=== PATIENT | female | born 1945 | race Caucasian/White ===

== ENCOUNTER → 2018-08-06 | Outpatient (CLI) | payer MEDICARE, OTHER ==
[~2018-08-06] MED LIST: ASPIR 8181 MG PO; ATENOLOL 50MG T50 M1 PO; CINNAMON500 MG PO; COLACE100 MG PO; LEVAQUIN 500 M500 M2 PO; MIRALAX17 GM PO; OXYCODONE HCL 55 MG PO; PHENERGAN 25 MG25 M1 PO; SYNTHROID125 MCG PO; VITAMIN D1000 UNI1 PO
== END ==
LOC: M.RAD 10:12
DX: D71 Functional disorders of polymorphonuclear neutrophils (principal); I70.0 Atherosclerosis of aorta; J18.1 Lobar pneumonia, unspecified organism

== ENCOUNTER 2019-10-15 11:00 | Inpatient (IN) | payer MEDICARE, OTHER ==
[~2019-10-15] VITALS: Ht 162.6 cm; Wt 90.7 kg
--- NOTE | ~2019-10-15 | PROC ---
[address] [address] PROCEDURE REPORT Name: SONAL ALBERT Room: [address] IN M.R.#: [id number] Admission: 10/15/19 Attend Phys: Dontae Min MD Discharge: 10/17/19 Date of : 43 Report #: [id number] THIS REPORT FOR: //name// cc: John Watt MD, David L. MD ~ THIS REPORT FOR: //name// For GI report, please see the Provation report in Perceptive 7 content. By: 0652Medical Records Staff ERASMO /YSABEL
[2019-10-15 11:36] LABS: ABSOLUTE EOSINOPHILS 0.4 thou/uL (0.0-0.7); ABSOLUTE MONOCYTES 0.7 thou/uL (0.0-1.2); ABSOLUTE NEUTROPHILS 8.5 thou/uL (1.6-8.1); BASOPHILS 0.2 %; EOSINOPHILS 3.1 %; HEMATOCRIT 43.6 % (37.0-47.0); HEMOGLOBIN 14.6 gm/dL (12.0-15.0); LYMPHOCYTES 17.3 %; MCH 29.8 pg (26.0-34.0); MCHC 33.6 g/dL (28.0-37.0); MCV 88.5 fL (80.0-100.0); MONOCYTES 5.7 %; MPV 7.7 fl. (7.2-11.1); NUCLEATED RBCS 0 /100WBC; PLATELET COUNT* 292 thou/uL (150-400); POLYS 73.7 %; RBC 4.92 mil/uL (4.20-5.00); RDW-CV 13.9 % (10.5-14.5); WBC 11.6 thou/uL (4.0-11.0)
[2019-10-15 11:57] LABS: ALBUMIN 3.7 g/dL (3.4-5.0); ALKALINE PHOSPHATASE 75 U/L (46-116); ANION GAP 9 mmol/L (7-16); BUN 11 mg/dL (7-18); CALCIUM 9.1 mg/dL (8.5-10.1); CHLORIDE 96 mmol/L (98-107); CHOLESTEROL 290 mg/dL (<200); CO2 27 mmol/L (21-32); CREATININE 0.9 mg/dL (0.6-1.3); GLUCOSE 248 mg/dL (70-99); HDL CHOLESTEROL 51 mg/dL (>40); LDL CHOLESTEROL 209 mg/dL (<100); POTASSIUM 3.5 mmol/L (3.5-5.1); SGOT 21 U/L (15-37); SGPT 41 U/L (30-65); SODIUM 132 mmol/L (136-145); TC:HDL 5.7 Ratio (Not establshd); TOTAL BILIRUBIN 0.5 mg/dL (<0.1-1.0); TOTAL PROTEIN 8.5 g/dL (6.4-8.2); TRIGLYCERIDE 154 mg/dL (<150); VLDL 31 mg/dL (<40)
[2019-10-15 12:00] LABS: SERUM ASSESSMENT Clear
[2019-10-15 16:23] VITALS: BP 179/100
[2019-10-15] MEDS ORDERED: NORVASC5 M1 PO (17:11)
[2019-10-15 20:00] VITALS: BP 149/74
[2019-10-16 05:23] LABS: ABSOLUTE EOSINOPHILS 0.1 thou/uL (0.0-0.7); ABSOLUTE LYMPHOCYTES 2.1 thou/uL (0.8-5.3); ABSOLUTE MONOCYTES 0.7 thou/uL (0.0-1.2); ABSOLUTE NEUTROPHILS 5.8 thou/uL (1.6-8.1); BASOPHILS 0.1 %; EOSINOPHILS 1.6 %; HEMATOCRIT 41.9 % (37.0-47.0); HEMOGLOBIN 14.1 gm/dL (12.0-15.0); LYMPHOCYTES 23.9 %; MCH 29.7 pg (26.0-34.0); MCHC 33.7 g/dL (28.0-37.0); MCV 88.1 fL (80.0-100.0); MONOCYTES 7.7 %; MPV 8.1 fl. (7.2-11.1); NUCLEATED RBCS 0 /100WBC; PLATELET COUNT* 254 thou/uL (150-400); POLYS 66.7 %; RBC 4.75 mil/uL (4.20-5.00); RDW-CV 14.1 % (10.5-14.5); WBC 8.6 thou/uL (4.0-11.0)
[2019-10-16 05:31] LABS: CALCIUM 8.2 mg/dL (8.5-10.1); CREATININE 0.8 mg/dL (0.6-1.3); POTASSIUM 3.1 mmol/L (3.5-5.1)
[2019-10-16 08:25] VITALS: BP 137/65
--- NOTE | 2019-10-16 08:26 | EKG ---
[place] [address] ELECTROCARDIOGRAM REPORT Name: NEHEMIASARNAVTHIENPHILL Calvin Room: [address] ADM IN .R.#: [id number] Admission: 10/15/19 Attend Phys: Dontae Min, Discharge: Date of : 43 Date of Service: 10/15/19 1636 Report #: [id number] THIS REPORT FOR: //name// [facility] Test Date: 2019-10-15 Test Time: 16:36:33 Pat Name: SONAL ALBERT Department: Room: [address] Gender: F Acute Care Assistant: : 1945 Requested By: Dontae Min Order Number: [id number] MD: Tomas Moon Measurements Intervals Colo Rate: 83 P: 66 DC: 144 QRS: 7 QRSD: 88 T: 44 QT: 379 QTc: 446 Interpretive Statements Sinus rhythm Compared to ECG 01/29/2017 05:15:17 Ventricular premature complex(es) no longer present ST (T wave) deviation no longer present Electronically Signed On 10-16-2019 8:24:52 CDT by Tomas Moon [email or web address] <ELECTRONICALLY SIGNED> By: Tomas Moon MD, FACC 10/16/19 0824 1636 1636 Tomas Moon MD, FACC /EPI
[2019-10-16 16:00] VITALS: BP 150/73
[2019-10-16 20:00] VITALS: BP 141/52
[2019-10-17 02:30] VITALS: BP 138/74
[2019-10-17 07:55] VITALS: BP 133/71
[2019-10-17 11:01] VITALS: BP 133/71
[2019-10-17 11:24] VITALS: BP 133/71
[2019-10-17 11:54] VITALS: BP 133/71
--- NOTE | 2019-10-17 15:09 | PATH ---
[address] [address] PATHOLOGY RPT PROCEDURE Name: SONAL ALBERT Room: [address] IN M.R.#: [id number] Admission: 10/15/19 Date of : 43 Discharge: 10/17/19 Report #: [id number] Path Case #: [id number] [facility] Accession Number: [id number] . 01 Material submitted: . sigmoid colon - SIGMOID COLON BIOPSY . 01 Clinician provided ICD-10: K92.2 K55.039 . 01 Clinical history: . Rectal bleeding, ischemic colitis . 02 Diagnosis: Sigmoid colon biopsy: - Active colitis with ulceration typical of ischemic colitis, negative for granulomas, viral inclusions, and dysplasia. See comment. (ALYSHA:pit 10/17/2019) QTP 10/17/2019 1314 Local . 02 Comment: The biopsies reveal benign colonic mucosa with trever ulceration and the adjacent viable colonic mucosa shows superficial crypt atrophy with preservation of the deeper aspects in association with condensation of the lamina propria, fresh hemorrhage, and inflammatory cells. There is no significant basal lymphoplasmacytosis or crypt distortion to raise a concern for inflammatory bowel disease. (ALYSHA:pit 10/17/2019) . 02 Electronically signed: . Bry Palm MD, Pathologist NPI- [id number] . 01 Gross description: . The specimen is received in formalin, labeled "Sonal Albert, sigmoid colon biopsy" and consists of multiple fragments of gar-brown tissue measuring 0.3 x 0.3 x 0.3 cm in aggregate which are entirely submitted in A1. ([facility]; 10/16/2019) JFQ/SARITA 10/16/2019 1853 Local . 02 Pathologist provided ICD-10: K63.3, K52.9 . 02 CPT . 339685 Specimen Comment: A courtesy copy of this report has been sent to [phone], [place] [address] PATHOLOGY RPT PROCEDURE Name: SONAL ALBERT Room: [address] [facility].#: [id number] Admission: 10/15/19 Date of : 43 Discharge: 10/17/19 Report #: [id number] Path Case #: [id number] Specimen Comment: 1664, Specimen Comment: Report sent to ,DR BAUTISTA / DR BROOKS Performed at: [address], [place], [place] [id number] MD Ayo Lopes MD Phone: [phone] Performed at: [address] [facility] [address], [place], [place] [id number] MD Bry Palm MD Phone: [phone]
--- NOTE | 2019-11-16 08:28 | CON ---
[address] [address] CONSULTATION Name: SONAL ALBERT Marixa Room: [address]#: [id number] Admission: 10/15/19 Attend Phys: Dontae Min MD Discharge: 10/17/19 Date of : 43 Report #: [id number] THIS REPORT FOR: //name// cc: John Watt MD, David L. MD ~ THIS REPORT FOR: //name// CC: Dontae Watt DATE OF SERVICE: 10/15/2019 HISTORY OF PRESENT ILLNESS: This is a pleasant 74-year-old female with past medical history significant for SLE and hypertension, who is presenting for evaluation of abdominal pain and hematochezia. The patient was in her usual state of health yesterday; following her dinner, she began noticing abdominal pain and cramps in the lower abdominal region; this was followed by a couple of episodes of diarrhea. Following this, the patient has had 5-6 episodes of bloody bowel movements. The patient reports noticing large amount of bright red blood and clots in her stool. This prompted her hospitalization. The patient denies similar episodes in the past. She did have some hemorrhoidal bleeding. The patient does endorse a history of chronic constipation for which she takes an [id number]-fpocllb laxative. PAST MEDICAL HISTORY: Hypertension, SLE. PAST SURGICAL HISTORY: The patient had back surgery, tubal ligation, multiple hernia repairs. SOCIAL HISTORY: The patient does not smoke, take alcohol or take recreational drugs. FAMILY HISTORY: No family history of colon cancer or Robert-related neoplasia. PHYSICAL EXAMINATION: GENERAL: The patient is alert, awake, oriented x 3. HEENT: Pupils are equal, round and reactive to light and accommodation. Mucous membranes are moist. There is no congestion. LUNGS: Clear to auscultation bilaterally. CARDIOVASCULAR: Rate and rhythm regular. S1, S2 present. ABDOMEN: Soft. There is no distention, guarding or rigidity. EXTREMITIES: Warm, well perfused. LABORATORY DATA: Hemoglobin 14.6, hematocrit 43.6, platelet count 292, WBC count 11.6. Sodium 132, potassium 3.5, chloride 96, bicarbonate 27, BUN 11, creatinine 0.9, total bilirubin 0.5, AST 21, ALT 41, alkaline phosphatase 75[place] [address] CONSULTATION Name: SONAL ALBERT Marixa Room: [address]#: [id number] Admission: 10/15/19 Attend Phys: Dontae Min MD Discharge: 10/17/19 Date of : 43 Report #: [id number] IMAGING STUDIES: CT scan of abdomen, severe distal colitis involving descending and sigmoid segments with large segment of mucosal enhancement, mural thickening and pericolonic edema, etiology is uncertain; very small amount of pelvic free fluid. ASSESSMENT AND PLAN: A pleasant 74-year-old female with painful hematochezia, baseline history of chronic constipation. I suspect this is related to ischemic colitis. We will prep the patient for colonoscopy today, proceed with colonoscopy tomorrow. The patient has moderately severe ischemic colitis based on the labs. Therefore, I would recommend antibiotics, continue Cipro and Flagyl for 72 hours. Thank you for this consultation. <ELECTRONICALLY SIGNED> By: Ed Phillip MD 11/16/19 0828 1529 2123Ed Phillip MD /nt
== END 2019-10-17 13:31 | disposition home or self-care (01) | DRG 377 ==
LOC: M.CT 11:00 → M.3W 13:55
PROVIDERS: Internal Medicine; ADMIT Internal Medicine; ATTEND Internal Medicine
PROC: 0DBN8ZX Excision of Sigmoid Colon, Via Natural or Artificial Opening Endoscopic, Diagnostic (ICD-10-PCS; principal; 2019-10-16)
DX: K92.2 Gastrointestinal hemorrhage, unspecified (principal); K55.039 Acute (reversible) ischemia of large intestine, extent unspecified; I10 Essential (primary) hypertension; K59.09 Other constipation; E03.9 Hypothyroidism, unspecified; M19.90 Unspecified osteoarthritis, unspecified site; G89.29 Other chronic pain; E66.01 Morbid (severe) obesity due to excess calories; Z88.8 Allergy status to other drugs, medicaments and biological substances; Z88.6 Allergy status to analgesic agent; Z88.0 Allergy status to penicillin; Z88.2 Allergy status to sulfonamides; Z90.49 Acquired absence of other specified parts of digestive tract; Z85.118 Personal history of other malignant neoplasm of bronchus and lung; Z87.891 Personal history of nicotine dependence; Z68.34 Body mass index [BMI] 34.0-34.9, adult

== ENCOUNTER → 2020-03-30 | Outpatient (CLI) | payer MEDICARE, OTHER ==
[~2020-03-30] MED LIST changes: +NORVASC5 M1 PO
== END ==
LOC: M.RAD 03-24 12:48
PROVIDERS: ATTEND Internal Medicine
DX: Z12.31 Encounter for screening mammogram for malignant neoplasm of breast (principal); N63.12 Unspecified lump in the right breast, upper inner quadrant; N63.20 Unspecified lump in the left breast, unspecified quadrant; N95.9 Unspecified menopausal and perimenopausal disorder

== ENCOUNTER → 2020-04-05 | Outpatient (CLI) | payer MEDICARE, OTHER | LOC: M.ULTRA 09:13 | PROVIDERS: ATTEND Internal Medicine | DX: N63.10 Unspecified lump in the right breast, unspecified quadrant (principal); N63.20 Unspecified lump in the left breast, unspecified quadrant ==

== ENCOUNTER → 2020-07-27 | Outpatient (CLI) | payer MEDICARE, OTHER | LOC: M.RAD 10:57 | PROVIDERS: ATTEND Internal Medicine | DX: J84.10 Pulmonary fibrosis, unspecified (principal); M19.032 Primary osteoarthritis, left wrist; M25.78 Osteophyte, vertebrae; M47.814 Spondylosis without myelopathy or radiculopathy, thoracic region ==

== ENCOUNTER → 2020-11-08 | Outpatient (CLI) | payer MEDICARE, OTHER | LOC: M.ULTRA 08:22 | PROVIDERS: ATTEND Internal Medicine | DX: N63.10 Unspecified lump in the right breast, unspecified quadrant (principal) ==

== ENCOUNTER 2021-06-13 11:25 | Inpatient (IN) | payer MEDICARE, OTHER ==
[~2021-06-13] VITALS: Ht 162.6 cm; Wt 83.9 kg
[2021-06-13 11:41] VITALS: BP 165/81
[2021-06-13 12:28] LABS: BE 0.8 mmol/L (-2 to +3); PCO2 35.1 mmHg (35.0-45.0); pH 7.456 (7.340-7.450)
[2021-06-13 12:46] LABS: HEMATOCRIT 42.7 % (37.0-47.0); HEMOGLOBIN 13.6 gm/dL (12.0-15.0); MCH 29.1 pg (26.0-34.0); MCHC 31.9 g/dL (28.0-37.0); NUCLEATED RBCS 0 /100WBC; PLATELET COUNT* 256 thou/uL (150-400); RBC 4.69 mil/uL (4.20-5.00); RDW-CV 14.8 % (10.5-14.5); WBC 6.1 thou/uL (4.0-11.0)
[2021-06-13 13:20] LABS: ABSOLUTE LYMPHOCYTES 1.6 thou/uL (0.8-5.3); ABSOLUTE MONOCYTES 0.5 thou/uL (0.0-1.2)
[2021-06-13 13:21] LABS: PLATELET ESTIMATE ADEQUATE
--- NOTE | 2021-06-13 13:27 | EKG ---
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
[2021-06-13 13:29] LABS: CALCIUM 9.1 mg/dL (8.5-10.1); POTASSIUM 3.9 mmol/L (3.5-5.1)
[2021-06-13 13:40] LABS: ALBUMIN 3.4 g/dL (3.4-5.0); TOTAL BILIRUBIN 0.4 mg/dL (<0.1-1.0); TOTAL PROTEIN 8.2 g/dL (6.4-8.2)
[2021-06-13 16:30] VITALS: BP 132/66
[2021-06-13 20:30] VITALS: BP 173/80
[2021-06-14] VITALS (9 sets, daily range): BP systolic 105–145; BP diastolic 49–79
[2021-06-14 04:19] LABS: HEMATOCRIT 43.3 % (37.0-47.0); HEMOGLOBIN 14.2 gm/dL (12.0-15.0); MCHC 32.8 g/dL (28.0-37.0); MCV 88.3 fL (80.0-100.0); MPV 7.9 fl. (7.2-11.1); RBC 4.91 mil/uL (4.20-5.00); RDW-CV 14.1 % (10.5-14.5); WBC 6.3 thou/uL (4.0-11.0)
[2021-06-14 04:46] LABS: CALCIUM 8.9 mg/dL (8.5-10.1); CREATININE 0.9 mg/dL (0.6-1.3); MAGNESIUM 2.4 mg/dL (1.8-2.4); POTASSIUM 3.4 mmol/L (3.5-5.1); TOTAL BILIRUBIN 0.3 mg/dL (<0.1-1.0); TOTAL PROTEIN 8.1 g/dL (6.4-8.2)
[2021-06-14 09:48] LABS: BE 0.4 mmol/L (-2 to +3); PO2 93.9 mmHg (75.0-100.0); pH 7.412 (7.340-7.450)
[2021-06-15] VITALS: BP 112/97
[2021-06-15 04:00] VITALS: BP 122/62
[2021-06-15 05:46] LABS: ABSOLUTE BASOPHILS 0.1 thou/uL (0.0-0.2); ABSOLUTE LYMPHOCYTES 0.9 thou/uL (0.8-5.3); ABSOLUTE MONOCYTES 0.3 thou/uL (0.0-1.2); BASOPHILS 0.8 %; HEMOGLOBIN 12.9 gm/dL (12.0-15.0); LYMPHOCYTES 10.5 %; MCH 29.2 pg (26.0-34.0); MCHC 33.1 g/dL (28.0-37.0); MCV 88.2 fL (80.0-100.0); MONOCYTES 3.8 %; NUCLEATED RBCS 0 /100WBC; PLATELET COUNT* 265 thou/uL (150-400); POLYS 84.9 %; RBC 4.42 mil/uL (4.20-5.00); RDW-CV 14.2 % (10.5-14.5); WBC 8.3 thou/uL (4.0-11.0)
[2021-06-15 05:57] LABS: ALBUMIN 2.7 g/dL (3.4-5.0); CALCIUM 8.4 mg/dL (8.5-10.1); POTASSIUM 3.8 mmol/L (3.5-5.1); TOTAL BILIRUBIN 0.3 mg/dL (<0.1-1.0); TOTAL PROTEIN 6.5 g/dL (6.4-8.2)
[2021-06-15 07:55] VITALS: BP 111/61
[2021-06-15 12:00] VITALS: BP 122/65
[2021-06-15 16:00] VITALS: BP 133/63
[2021-06-15 19:55] VITALS: BP 130/56
[2021-06-16] VITALS: BP 120/48
[2021-06-16 04:00] VITALS: BP 120/50
[2021-06-16 05:31] LABS: ABSOLUTE LYMPHOCYTES 0.8 thou/uL (0.8-5.3); ABSOLUTE MONOCYTES 0.3 thou/uL (0.0-1.2); ABSOLUTE NEUTROPHILS 5.4 thou/uL (1.6-8.1); BASOPHILS 0.3 %; HEMATOCRIT 37.3 % (37.0-47.0); HEMOGLOBIN 12.3 gm/dL (12.0-15.0); LYMPHOCYTES 12.7 %; MCH 28.9 pg (26.0-34.0); MCV 87.8 fL (80.0-100.0); MONOCYTES 4.7 %; MPV 7.6 fl. (7.2-11.1); NUCLEATED RBCS 0 /100WBC; PLATELET COUNT* 254 thou/uL (150-400); POLYS 82.3 %; RBC 4.25 mil/uL (4.20-5.00); RDW-CV 14.1 % (10.5-14.5); WBC 6.6 thou/uL (4.0-11.0)
[2021-06-16 05:49] LABS: ALBUMIN 2.4 g/dL (3.4-5.0); CALCIUM 8.4 mg/dL (8.5-10.1); CREATININE 0.8 mg/dL (0.6-1.3); MAGNESIUM 2.1 mg/dL (1.8-2.4); POTASSIUM 3.9 mmol/L (3.5-5.1); TOTAL BILIRUBIN 0.3 mg/dL (<0.1-1.0); TOTAL PROTEIN 6.4 g/dL (6.4-8.2)
[2021-06-16 08:00] VITALS: BP 153/70
--- NOTE | 2021-06-16 09:07 | 2DMMODE ---
[place] [address] 2 D/M-MODE ECHOCARDIOGRAM Name: SONAL ALBERT Room: [address] IN [facility]#: [id number] Admission: 06/13/21 Attend Phys: Janina Muhammad, Discharge: Date of : 43 Date of Service: 06/16/21 0907 Report #: [id number] THIS REPORT FOR: cc: Heri Gregg MD, Meng MD Liston, Michael J. MD [facility] ~ APPROVED REPORT Study performed: 06/15/2021 15:00:29 EXAM: Comprehensive 2D, Doppler, and color-flow Echocardiogram Patient Location: In-Patient Room #: [facility] Status: routine BSA: 1.90 HR: 79 bpm BP: 122/65 mmHg Rhythm: NSR Other Information Study Quality: Good Indications Dyspnea 2D Dimensions IVSd: 11.47 (7-11mm) LVOT Diam: 22.68 (18-24mm) LVDd: 46.39 mm PWd: 9.84 (7-11mm) Ascending Ao: 33.35 (22-36mm) LVDs: 23.80 (25-40mm) Aortic Root: 29.75 mm Volumes Left Atrial Volume (Systole) LA ESV Index: 25.10 mL/m2 Aortic Valve AoV Peak Steven.: 2.00 m/s AO Peak Gr.: 15.97 mmHg LVOT Max P.66 mmHg AO Mean Gr.: 8.59 mmHg LVOT Mean P.30 mmHg LVOT Max V: 1.29 m/s AO V2 VTI: 33.96 cm LVOT Mean V: 0.83 m/s GLORIA (VTI): 3.09 cm2 LVOT V1 VTI: 25.93 [place] [address] 2 D/M-MODE ECHOCARDIOGRAM Name: SONAL ALBERT Room: [address] IN [facility].#: [id number] Admission: 06/13/21 Attend Phys: Janina Muhammad, Discharge: Date of : 43 Date of Service: 06/16/21 0907 Report #: [id number] Mitral Valve E/A Ratio: 0.78 MV Decel. Time: 292.14 ms MV E Max Steven.: 0.50 m/s MV PHT: 84.72 ms MVA (PHT): 2.60 cm2 TDI E/Lateral E': 3.85 E/Medial E': 6.25 Medial E' Steven.: 0.08 m/s Lateral E' Steven.: 0.13 m/s Pulmonary Valve PV Peak Steven.: 1.09 m/s PV Peak Gr.: 4.73 mmHg Tricuspid Valve RAP Estimate: 5.00 mmHg TR Peak Gr.: 24.62 mmHg RVSP: 29.00 mmHg PA Pressure: 29.00 mmHg Left Ventricle The left ventricle is normal size. There is normal LV segmental wall motion. There is normal left ventricular wall thickness. Left ventricular systolic function is normal. LVEF is 55-60%. Grade I - abnormal relaxation pattern. Right Ventricle The right ventricle is normal size. The right ventricular systolic function is normal. Atria Left atrium is mildly dilated. The right atrium size is normal. Aortic Valve Mild aortic valve sclerosis. No aortic regurgitation is present. There is no aortic valvular stenosis. Mitral Valve The mitral valve is normal in structure. There is no mitral valve regurgitation noted. No evidence of mitral valve stenosis. Tricuspid Valve The tricuspid valve is normal in structure. Trace tricuspid regurgitation. The RVSP is 30-[place] [address] 2 D/M-MODE ECHOCARDIOGRAM Name: SONAL ALBERT Room: [address]#: [id number] Admission: 06/13/21 Attend Phys: Janina Muhammad, Discharge: Date of : 43 Date of Service: 06/16/21 0907 Report #: [id number] Pulmonic Valve The pulmonary valve is normal in structure. There is no pulmonic valvular regurgitation. Great Vessels The aortic root is normal in size. IVC is not well visualized. Pericardium There is no pericardial effusion. <Conclusion> The left ventricle is normal size. There is normal left ventricular wall thickness. Left ventricular systolic function is normal. LVEF is 55-60%. Grade I - abnormal relaxation pattern. Left atrium is mildly dilated. Mild aortic valve sclerosis. Trace tricuspid regurgitation. The RVSP is 30-35 mmHg. <ELECTRONICALLY SIGNED> By: Tomas Moon MD, FACC 06/16/21906 6 6 Tomas Moon MD, FACC /INF
[2021-06-16 12:20] VITALS: BP 156/74
[2021-06-16 16:24] VITALS: BP 149/65
[2021-06-16 20:00] VITALS: BP 163/69
[2021-06-17 00:27] VITALS: BP 126/65
[2021-06-17 04:15] VITALS: BP 153/73
[2021-06-17 06:55] LABS: ABSOLUTE BASOPHILS 0.1 thou/uL (0.0-0.2); ABSOLUTE MONOCYTES 0.3 thou/uL (0.0-1.2); ABSOLUTE NEUTROPHILS 6.6 thou/uL (1.6-8.1); HEMOGLOBIN 12.4 gm/dL (12.0-15.0); LYMPHOCYTES 12.4 %; MCH 28.7 pg (26.0-34.0); MCHC 32.6 g/dL (28.0-37.0); MONOCYTES 3.7 %; MPV 7.9 fl. (7.2-11.1); NUCLEATED RBCS 0 /100WBC; PLATELET COUNT* 285 thou/uL (150-400); POLYS 82.9 %; RBC 4.33 mil/uL (4.20-5.00); RDW-CV 14.1 % (10.5-14.5); WBC 7.9 thou/uL (4.0-11.0)
[2021-06-17 08:12] VITALS: BP 149/74
[2021-06-17 09:37] LABS: ALBUMIN 2.4 g/dL (3.4-5.0); CALCIUM 8.8 mg/dL (8.5-10.1); CREATININE 0.9 mg/dL (0.6-1.3); MAGNESIUM 1.9 mg/dL (1.8-2.4); POTASSIUM 4.3 mmol/L (3.5-5.1); TOTAL BILIRUBIN 0.3 mg/dL (<0.1-1.0); TOTAL PROTEIN 6.2 g/dL (6.4-8.2)
[2021-06-17 12:00] VITALS: BP 179/76
--- NOTE | 2021-06-17 15:15 | CON ---
[address] [address] CONSULTATION Name: SONAL ALBERT Room: [address] IN .R.#: [id number] Admission: 06/13/21 Attend Phys: Janina Muhammad MD Discharge: Date of : 43 Report #: [id number] THIS REPORT FOR: cc: Heri Gregg MD, Meng MD Pervez, Adeel MD ~ DATE OF CONSULTATION: 06/15/2021 Consult has been requested by Dr. Muhammad. INDICATION FOR CONSULTATION: Acute hypoxemic respiratory failure secondary to COVID-19. HISTORY OF PRESENT ILLNESS: This is a 76-year-old female with past medical history is as mentioned below. The patient provided me only a limited past medical history. She does according to records have a history of lung cancer. I do not have any details available. She has a previous history of smoking, but does not have a previous diagnosis of COPD on the records. The patient was recently admitted to another hospital, both [facility] as well as [facility] are mentioned on the records. The patient stated that she was admitted to [facility]. The patient reports being treated for pneumonia and then discharged on 1 liter of oxygen at rest and 3 liters oxygen during ambulation. The patient subsequently had worsening shortness of breath as well as weakness; therefore, eventually EMS were called, which found her O2 saturation to be in the 70s. Therefore, she was brought to this hospital. She continued to remain short of breath. She says she is weak. She has a cough. There is not much sputum. There is no chest pain. She currently is not describing upper respiratory complaints. There is no swelling of lower extremities. There is no calf pain. The patient answered to the negative to 12 questions for review of systems. She has had some longstanding pain complaints, which are unchanged. The patient, however, provided a limited history. PAST MEDICAL HISTORY: Lung cancer, details not available; lupus, hypothyroidism, fibromyalgia, left leg vein surgery, subdural hematoma, back surgery for ruptured disks, multiple hernia surgeries, tubal ligation, appendectomy, carpal tunnel surgery, Meniere's disease, neurogenic bladder, partial hysterectomy. I do not have a measure of her left ventricular ejection fraction available at this time. CURRENT MEDICATIONS: List in [place] reviewed. HOME MEDICATIONS: [place] [address] CONSULTATION Name: ROOSEVELTSONAL Calvin Room: [address]#: [id number] Admission: 06/13/21 Attend Phys: Janina Muhammad MD Discharge: Date of : 43 Report #: [id number] ALLERGIES: THERE ARE MULTIPLE ALLERGIES LISTED IN THE RECORD, THE LIST IS REVIEWED. NOTE THAT DESPITE A HISTORY OF PENICILLIN ALLERGY. THE PATIENT TOLERATES CEPHALOSPORINS WITHOUT PROBLEMS. SEVERAL NARCOTICS ARE LISTED ALLERGIES. UNCLEAR IF THE PATIENT IN FACT IS ALLERGIC TO THESE MEDICATIONS. FAMILY HISTORY: No pertinent family history. PHYSICAL EXAMINATION: GENERAL: She is alert, awake and oriented; however, provides a limited history at the time of my evaluation was on 80% FiO2 with 50 liters flow on heated high-flow nasal cannula with saturating in the high 90s. VITAL SIGNS: Pulse 71, blood pressure 122/65, saturating 94-95%. She is afebrile with a temperature of 36.7. HEENT: Head is normocephalic and atraumatic. NECK: Does not show raised JVP, asymmetry, mass or lymph nodes. CHEST: Symmetrical expansion on inspection and palpation. On auscultation, breath sounds are bilaterally equal. I do not hear any added sounds. HEART: Regular. There is no murmur. ABDOMEN: Soft and nontender. EXTREMITIES: Lower extremities show no edema and no calf tenderness. SKIN: Dry and intact. NEUROLOGIC: Moves all extremities bilaterally equally and spontaneously with no focal deficit identified. LABORATORY DATA: The patient's lab work, CTA chest as well as venous Dopplers are in [place]. These are reviewed. I reviewed the chest x-ray films as well as CTA chest films myself as well. ASSESSMENT/PLAN: 1. Acute hypoxemic respiratory failure secondary to COVID-19. Primarily, the patient's respiratory failure appears to be secondary to COVID-19. As below, I would also cover her for secondary bacterial infections despite lack of definite evidence. Evaluation for thromboembolism so far is negative and she does not appear to be fluid overloaded on exam at this time. 2. COVID-19. She is on dexamethasone. We will continue as currently prescribed. She is also on remdesivir, continue. We will follow LFTs. I recommend going ahead and giving her a dose of Actemra. 3. Pulmonary infiltrates, primarily these are likely secondary to COVID-19. However, considering recent describes history to admission to another hospital. I do fever treating her with broad-spectrum antibiotics. We will continue doxycycline, would switch ceftriaxone over to cefepime. I recommend that we go ahead and obtain a nasal swab for MRSA. If she is able to produce sputum, then obtaining a sputum culture may also be of benefit. [address] [address] CONSULTATION Name: SONAL ALBERT Room: [address] IN [facility]#: [id number] Admission: 06/13/21 Attend Phys: Janina Muhammad MD Discharge: Date of : 43 Report #: [id number] 4. History of lung cancer. I do not have any details available. There is no obvious evidence of resection on her imaging. We will investigate this further. 5. History of smoking/bronchospasm/possible chronic obstructive pulmonary disease. She did not appear to be actively bronchospastic at this time, I switched her nebs over to scheduled Brovana and p.r.n. albuterol as her heart rate is within the normal range. She is more bronchospastic. We can add DuoNeb schedule. The patient stated she discontinued smoking around 43 years ago. 6. Evaluation for thromboembolic phenomena/history of hypertension, mildly elevated D-dimer, venous Dopplers and CTA chest, do not show thromboembolism. I would like to go 2D echo as well. Meanwhile, she is on Lovenox for deep venous thrombosis prophylaxis. 7. Gastrointestinal prophylaxis. She is on Pepcid. I am not certain if her allergy to PPIs is accurate; however, no strong reason to administer PPI at this time. 8. Hyperglycemia. Insulin per primary service. The patient is critically ill at this time. Total time spent providing critical care to this patient today exceeds 38 minutes. <ELECTRONICALLY SIGNED> By: Cristopher Rodney MD 06/17/21 1515 1334 [id number] renuka Woody
[2021-06-17 16:00] VITALS: BP 151/58
[2021-06-17 20:00] VITALS: BP 126/59
[2021-06-18 01:44] VITALS: BP 134/66
[2021-06-18 05:50] VITALS: BP 148/80
[2021-06-18 08:01] VITALS: BP 158/75
[2021-06-18 12:00] VITALS: BP 124/60
[2021-06-18 16:00] VITALS: BP 128/56
[2021-06-18 16:13] LABS: HEMOGLOBIN 13.6 gm/dL (12.0-15.0); MCH 28.6 pg (26.0-34.0); MCHC 32.4 g/dL (28.0-37.0); MCV 88.3 fL (80.0-100.0); MPV 7.2 fl. (7.2-11.1); NUCLEATED RBCS 0 /100WBC; RBC 4.75 mil/uL (4.20-5.00); WBC 11.1 thou/uL (4.0-11.0)
[2021-06-18 16:35] LABS: PLATELET COUNT* 377 thou/uL (150-400)
[2021-06-18 16:44] LABS: ALBUMIN 2.7 g/dL (3.4-5.0); CALCIUM 9.2 mg/dL (8.5-10.1); MAGNESIUM 2.2 mg/dL (1.8-2.4); POTASSIUM 3.9 mmol/L (3.5-5.1); TOTAL BILIRUBIN 0.3 mg/dL (<0.1-1.0); TOTAL PROTEIN 6.8 g/dL (6.4-8.2)
[2021-06-18 17:08] LABS: ABSOLUTE LYMPHOCYTES 0.8 thou/uL (0.8-5.3); ABSOLUTE MONOCYTES 0.3 thou/uL (0.0-1.2); PLATELET ESTIMATE ADEQUATE
[2021-06-18 20:00] VITALS: BP 142/82
[2021-06-19 00:04] VITALS: BP 129/63
[2021-06-19 04:53] VITALS: BP 134/68
[2021-06-19 08:00] VITALS: BP 147/73
[2021-06-19 10:00] LABS: ALBUMIN 2.5 g/dL (3.4-5.0); CREATININE 0.9 mg/dL (0.6-1.3); TOTAL BILIRUBIN 0.4 mg/dL (<0.1-1.0); TOTAL PROTEIN 6.1 g/dL (6.4-8.2)
[2021-06-19 10:08] LABS: ABSOLUTE LYMPHOCYTES 1.1 thou/uL (0.8-5.3); ABSOLUTE MONOCYTES 0.6 thou/uL (0.0-1.2); ABSOLUTE NEUTROPHILS 8.3 thou/uL (1.6-8.1); BASOPHILS 0.4 %; HEMATOCRIT 41.4 % (37.0-47.0); HEMOGLOBIN 13.3 gm/dL (12.0-15.0); LYMPHOCYTES 11.1 %; MCH 28.8 pg (26.0-34.0); MCHC 32.2 g/dL (28.0-37.0); MCV 89.6 fL (80.0-100.0); MONOCYTES 5.7 %; MPV 7.8 fl. (7.2-11.1); NUCLEATED RBCS 0 /100WBC; PLATELET COUNT* 342 thou/uL (150-400); POLYS 82.8 %; RBC 4.62 mil/uL (4.20-5.00); RDW-CV 14.4 % (10.5-14.5)
[2021-06-19 12:00] VITALS: BP 142/71
[2021-06-19 16:00] VITALS: BP 158/66
[2021-06-19 20:00] VITALS: BP 155/62
[2021-06-20] VITALS: BP 126/64
[2021-06-20 04:00] VITALS: BP 122/64
[2021-06-20 05:23] LABS: ALBUMIN 2.6 g/dL (3.4-5.0); CALCIUM 9.1 mg/dL (8.5-10.1); CREATININE 0.9 mg/dL (0.6-1.3); MAGNESIUM 2.1 mg/dL (1.8-2.4); POTASSIUM 3.9 mmol/L (3.5-5.1); TOTAL BILIRUBIN 0.4 mg/dL (<0.1-1.0); TOTAL PROTEIN 6.2 g/dL (6.4-8.2)
[2021-06-20 08:00] VITALS: BP 138/60
[2021-06-20 11:52] VITALS: BP 112/52
[2021-06-20 15:42] VITALS: BP 127/66
[2021-06-20 22:00] VITALS: BP 166/75
[2021-06-21 04:00] VITALS: BP 160/64
[2021-06-21 05:34] LABS: ABSOLUTE BASOPHILS 0.1 thou/uL (0.0-0.2); ABSOLUTE EOSINOPHILS 0.1 thou/uL (0.0-0.7); ABSOLUTE LYMPHOCYTES 1.6 thou/uL (0.8-5.3); ABSOLUTE MONOCYTES 0.7 thou/uL (0.0-1.2); ABSOLUTE NEUTROPHILS 7.6 thou/uL (1.6-8.1); EOSINOPHILS 0.6 %; HEMATOCRIT 40.2 % (37.0-47.0); HEMOGLOBIN 13.1 gm/dL (12.0-15.0); LYMPHOCYTES 15.7 %; MCH 28.6 pg (26.0-34.0); MCHC 32.6 g/dL (28.0-37.0); MCV 87.8 fL (80.0-100.0); MONOCYTES 7.2 %; MPV 7.7 fl. (7.2-11.1); NUCLEATED RBCS 0 /100WBC; PLATELET COUNT* 278 thou/uL (150-400); POLYS 75.5 %; RBC 4.58 mil/uL (4.20-5.00); RDW-CV 14.1 % (10.5-14.5); WBC 10.1 thou/uL (4.0-11.0)
[2021-06-21 05:53] LABS: ALBUMIN 2.5 g/dL (3.4-5.0); CALCIUM 9.1 mg/dL (8.5-10.1); CREATININE 0.8 mg/dL (0.6-1.3); POTASSIUM 3.7 mmol/L (3.5-5.1); TOTAL BILIRUBIN 0.4 mg/dL (<0.1-1.0); TOTAL PROTEIN 5.9 g/dL (6.4-8.2)
[2021-06-21 08:04] VITALS: BP 122/74
[2021-06-21 11:55] VITALS: BP 134/68
[2021-06-21 16:03] VITALS: BP 127/65
[2021-06-21 22:30] VITALS: BP 133/59
[2021-06-22 00:31] VITALS: BP 130/71
[2021-06-22 04:00] VITALS: BP 120/60
[2021-06-22 06:29] LABS: ALBUMIN 2.5 g/dL (3.4-5.0); CALCIUM 8.8 mg/dL (8.5-10.1); CREATININE 0.8 mg/dL (0.6-1.3); MAGNESIUM 1.9 mg/dL (1.8-2.4); POTASSIUM 3.6 mmol/L (3.5-5.1); TOTAL BILIRUBIN 0.4 mg/dL (<0.1-1.0); TOTAL PROTEIN 5.7 g/dL (6.4-8.2)
[2021-06-22 08:00] VITALS: BP 137/68
[2021-06-22 12:00] VITALS: BP 1214/66
[2021-06-22 16:00] VITALS: BP 120/62
[2021-06-22 22:00] VITALS: BP 118/52
[2021-06-23] VITALS: BP 122/60
[2021-06-23 03:59] VITALS: BP 122/65
[2021-06-23 08:49] VITALS: BP 138/76
[2021-06-23 12:00] VITALS: BP 136/69
[2021-06-23 12:35] VITALS: BP 136/69
[2021-06-23] MEDS ORDERED: DOXYCYCLINE 10100 MG PO (12:46)
[2021-06-23] MEDS ORDERED: DEXAMETHASONE1 MG PO (12:46)
== END 2021-06-23 15:14 | disposition home health service (06) | DRG 177 ==
LOC: M.ERS 11:25 → M.TBA-ER 12:49 → M.ORTHSURG 06-14 10:01
PROVIDERS: Family Medicine; Internal Medicine; Internal Medicine Critical Care Medicine; ADMIT Internal Medicine; ATTEND Internal Medicine
PROC: XW033E5 Introduction of Remdesivir Anti-infective into Peripheral Vein, Percutaneous Approach, New Technology Group 5 (ICD-10-PCS; principal; 2021-06-13)
PROC: 02HV33Z Insertion of Infusion Device into Superior Vena Cava, Percutaneous Approach (ICD-10-PCS; 2021-06-14)
PROC: 5A0935A Assistance with Respiratory Ventilation, Less than 24 Consecutive Hours, High Flow/Velocity Cannula (ICD-10-PCS; 2021-06-14)
PROC: 5A0935A Assistance with Respiratory Ventilation, Less than 24 Consecutive Hours, High Flow/Velocity Cannula (ICD-10-PCS; 2021-06-15)
PROC: 5A0935A Assistance with Respiratory Ventilation, Less than 24 Consecutive Hours, High Flow/Velocity Cannula (ICD-10-PCS; 2021-06-17)
PROC: 5A0935A Assistance with Respiratory Ventilation, Less than 24 Consecutive Hours, High Flow/Velocity Cannula (ICD-10-PCS; 2021-06-18)
PROC: 5A0935A Assistance with Respiratory Ventilation, Less than 24 Consecutive Hours, High Flow/Velocity Cannula (ICD-10-PCS; 2021-06-19)
PROC: 5A0935A Assistance with Respiratory Ventilation, Less than 24 Consecutive Hours, High Flow/Velocity Cannula (ICD-10-PCS; 2021-06-20)
PROC: 5A0935A Assistance with Respiratory Ventilation, Less than 24 Consecutive Hours, High Flow/Velocity Cannula (ICD-10-PCS; 2021-06-21)
DX: U07.1 COVID-19 (principal); J15.6 Pneumonia due to other Gram-negative bacteria; J12.82 Pneumonia due to coronavirus disease 2019; J80 Acute respiratory distress syndrome; E03.9 Hypothyroidism, unspecified; I10 Essential (primary) hypertension; G89.29 Other chronic pain; M54.9 Dorsalgia, unspecified; M32.9 Systemic lupus erythematosus, unspecified; E11.65 Type 2 diabetes mellitus with hyperglycemia; F41.9 Anxiety disorder, unspecified; N31.9 Neuromuscular dysfunction of bladder, unspecified; M79.7 Fibromyalgia; Z90.49 Acquired absence of other specified parts of digestive tract; Z85.118 Personal history of other malignant neoplasm of bronchus and lung; Z88.6 Allergy status to analgesic agent; Z88.0 Allergy status to penicillin; Z88.2 Allergy status to sulfonamides; Z88.8 Allergy status to other drugs, medicaments and biological substances; Z87.891 Personal history of nicotine dependence; Z79.82 Long term (current) use of aspirin; Z79.899 Other long term (current) drug therapy